=== PATIENT | female | born 1990 | race Caucasian/White ===

== ENCOUNTER 2016-12-28 21:01 | Emergency (ER) | payer OTHER ==
[2016-12-28 21:19] VITALS: BP 142/77; BMI 31.3
[2016-12-28] MEDS ORDERED: SOLU-Medrol 125 MG VIAL IVP ONE (21:38)
[2016-12-28] MEDS ORDERED: BENADRYL INJ 50 MG VIAL IVP STA (21:39)
[2016-12-28] MEDS ORDERED: PEPCID 20 MG IV PREMIX* 20 MG/50 ML BAG IV ONE ×2 (21:39→21:51)
--- NOTE | 2016-12-28 21:46 | DR.GENAD ---
HPI - PCP Primary Care Physician: Naa FINN - Complaint/Symptoms Chief Complaint Doctors Comments: Patient complains of rash for the past 1-2 weeks getting worst since last night. States onset when they went to the [place] earlier and last night they were in the [place] again and athe rash has gotten worst with itching and bullous lesion on her arms and back with red rash diffusely including the face. States she went to the walk in clinic last week and they told her it look like poison germán and they gave her some steriod pills, and pills for the itching and a cream for the rash and itching. States the medicne has not helped and she continues to break out with a rash. she denies SOB or chest pain. States she smokes 1/2 pack daily but denies alcohol or drug usage. States she has an IUD. Patient states she does not know if she was bitten by a tick while she [place]. Chief Complaint:: BREAKING OUT IN HIVES TIMES 1 WEEL CHEST NOW HURTING, BLISTER STARTING POPPING UP 30 MINS AGO Self Treatment fo Chief Complaint: PRESCRIBED STEROIDS ITCHING CREAM AND TABLETS - Nurses notes reviewed Nurses Notes Review: Yes - Source History Provided: Patient - Mode of Arrival Mode of Arrival: Ambulatory - Timing Onset of Chief Complaint: 12/20/16 Came on: Gradually - Duration Duration: Constant How lon Duration: Weeks - Location Location: diffuse rash or arms, legs, back - Severity Severity: Moderate - Modifying Factors Worsens:: nothing Improves:: nothing PMH - PMH Past Medical History: Yes Past Medical History: Anxiety, Depression Past Medical History Comment: OPIOID ADDICTION Past Surgical History: Yes Surgical History: , Cholecystectomy, [employer]AN Surgery Past Surgical History Comment: IUD - Family History History of Family Medical Conditions: Yes Family Medical History: Diabetes Mellitus, Cancer, [place], Heart Failure, Sudden Cardiac , Hypertension - Social History Does patient currently use any type of tobacco product: Yes Have you used tobacco products in the last 12 months: Yes Type of Tobacco Use: Cigarettes Does any household member use tobacco: No Do you use any recreational Drugs:: No Lives With: Significant Other Lives Where: Home - infectious screening In the last 2 months have you had wt loss of >10#?: NO Have you had fever, night sweats or hemotysis?: No Have you traveled outside the country in the last 6 months?: No Isolation: Standard ROS - Review of Systems Constitutional: No Symptoms Reported Eyes: No Symptoms Reported ENTM: No Symptoms Reported Respiratoy: No Symptoms Reported Cardiovascular: No Symptoms Reported Gastrointestinal/Abdominal: No Symptoms Reported Genitourinary: No Symptoms Reported Neurological: No Symptoms Reported Musculoskeletal: No Symptoms Reported Integumentary: No Symptoms Reported, Change in Color, Lesions, Rash, Itching Hematologic/Lymphatic: No Symptoms Reported Endocrine: No Symptoms Reported Psychiatric: No Symptoms Reported PE - Vital Signs Vitals: Pulse Rate 115 Respiratory Rate 20 Blood Pressure 142/77 O2 Sat by Pulse Oximetry 98 - General Limitations: No Limitations General Appearance: Alert - Head Head Exam: Normal Inspection, Atraumatic - Eyes Eye exam: Normal Appearance, PERRL, EOMI. negative: Scleral Icterus, Conjunctival Injection, Nystagmus, Miosis, Mydrasis, Periorbital Swelling, Periorbital Tenderness, Other - ENT ENT Exam: Normal Exam, Normal Oropharynx, Normal External Ear Exam, Mucous Membranes Moist, TM's Normal Bilaterally External Ear Exam: Normal External Inspection TM/Canal Exam: Bilateral Normal Nose Exam: Normal Nose Exam Mouth Exam: Normal Inspection Throat Exam: Normal Inspection, Tonsillar Erythema - Neck Neck Exam: Normal Inspection, Trachea Midline - Chest Chest Inspection: Normal Inspection, Symmetric Chest Wall Rise - Respiratory Respiratory Exam: Normal Lung Sounds Bilat Respiratory Exam: Bilateral Clear to Auscultation - Cardiovascular Cardiovascular Exam: Regular Rate, Normal Rhythm, Normal Heart Sounds - Abdominal Exam Abdominal Exam: Normal Inspection, Normal Bowel Sounds, Soft Abdominal Tenderness: negative: RUQ, RLQ, LUQ, LLQ, Epigastrium, Suprapubic, Diffuse, Mild, Moderate, Severe, Other - Extremities Extremities Exam: Normal Inspection, Full ROM, Tenderness (right elbow and fore arm with subcutaneous nodules tender 1 -2 cm with erythema), Normal Capillary Refill - Back Back Exam: Normal Inspection, Full ROM - Neurologic Neurological Exam: Alert, Oriented X3, CN II-XII Intact, Normal Gait, Reflexes Normal - Psychiatric Psychiatric Exam: Normal Affect, Normal Mood - Skin Skin Exam: Warm, Dry, Intact, Normal Color, Rash (diffuse rash 4 cm with pustular center; large area erythema, hives arms vback , leg and face) Course - Reevaluation 1st: Improved - Education/Counseling Education/Counseling: Patient Educated On: Treatment, Diagnosis, Needs for Follow Up (Patient states she want to go home and does not want to be observed in the hospital.) ROR - Labs Reviewed Laboratory Results Reviewed?: Yes (All labs and x-ray results reviewed and discussed with patient) Result Diagrams: 12/28/16 21:50 12/28/16 21:50 Laboratory: WBC 10.5 X10^3/uL (3.6-10.0) H 12/28/16 21:50 RBC 4.58 X10^6/uL (3.5-5.4) 12/28/16 21:50 Hgb 13.2 g/dL (12.0-16.0) 12/28/16 21:50 Hct 38.8 % (36.0-47.0) 12/28/16 21:50 MCV 84.8 fL (80.0-100.0) 12/28/16 21:50 MCH 28.8 pg (27.0-34.0) 12/28/16 21:50 MCHC 34.0 g/dL (33.0-35.0) 12/28/16 21:50 RDW 12.2 % (11.6-16.5) 12/28/16 21:50 Plt Count 314 X10^3/uL (150.0-450.0) 12/28/16 21:50 MPV 7.4 fL (7.4-11.0) 12/28/16 21:50 Neut % 65.2 % (42.0-75.0) 12/28/16 21:50 Lymph % 22.6 % (21.0-51.0) 12/28/16 21:50 [place] % 6.6 % (0.0-13.0) 12/28/16 21:50 Eos % 5.1 % (0.9-2.9) H 12/28/16 21:50 Baso % 0.5 % (0.2-1.0) 12/28/16 21:50 Neut # 6.9 x10^3/uL (2.2-4.8) H 12/28/16 21:50 Lymph # 2.4 X10^3/uL (1.3-2.9) 12/28/16 21:50 [place] # 0.7 x10^3/uL (0.3-0.8) 12/28/16 21:50 Eos # 0.5 x10^3/uL (0.0-0.2) H 12/28/16 21:50 Baso # 0.0 X10^3/uL (0.0-0.1) 12/28/16 21:50 Absolute Nucleated RBC 0.0 /100WBC 12/28/16 21:50 INR Target Range - 12/28/16 21:50 INR 0.87 (0.8-1.3) 12/28/16 21:50 PTT 27.7 SECONDS (22.9-36.5) 12/28/16 21:50 PTT Comment - 12/28/16 21:50 Sodium 142 mmol/L (136-145) 12/28/16 21:50 Corrected Sodium TNP 12/28/16 21:50 Potassium 4.3 mmol/L (3.5-5.1) 12/28/16 21:50 Chloride 105 mmol/L (98-107) 12/28/16 21:50 Carbon Dioxide 27.6 mmol/L (21-32) 12/28/16 21:50 BUN 17 mg/dL (7-18) 12/28/16 21:50 Creatinine 0.77 mg/dL (0.55-1.02) 12/28/16 21:50 Est GFR (MDRD) Af Amer > 60 (>60) 12/28/16 21:50 Est GFR (MDRD) Non-Af > 60 (>60) 12/28/16 21:50 Glucose 83 mg/dL (65-99) 12/28/16 21:50 Lactic Acid 0.7 mmol/L (0.4-2.0) 12/28/16 21:50 Calcium 9.0 mg/dL (8.5-10.1) 12/28/16 21:50 Corrected Calcium 9.6 mg/dL (8.5-10.1) 12/28/16 21:50 Magnesium 1.8 mg/dL (1.7-2.9) 12/28/16 21:50 Total Bilirubin 0.10 mg/dL (0.2-1.0) L 12/28/16 21:50 AST 22 Units/L (15-37) 12/28/16 21:50 ALT 31 Units/L (12-78) 12/28/16 21:50 Alkaline Phosphatase 104 Units/L (46-116) 12/28/16 21:50 Creatine Kinase 120 Units/L (26-192) 12/28/16 21:50 CK-MB (CK-2) 2.7 ng/mL (0-4.0) 12/28/16 21:50 CK/CKMB % Calc 2.3 % (<4) 12/28/16 21:50 Troponin I < 0.02 ng/mL (0-1.5) 12/28/16 21:50 C-Reactive Protein 5.90 mg/L (0-3.0) H 12/28/16 21:50 Total Protein 7.4 g/dL (6.4-8.2) 12/28/16 21:50 Albumin 3.3 g/dL (3.4-5.0) L 12/28/16 21:50 Globulin 4.1 g/dL (2.5-4.5) 12/28/16 21:50 Albumin/Globulin Ratio 0.8 Ratio (1.1-2.1) L 12/28/16 21:50 - XRAY XRAY Interpreted by: Radiologist (CXR: No acute cardiopulmonary disease) - Diagnosis Discharge Problem: Folliculitis, Poison germán dermatitis, Hives Allergic reaction Qualifiers: Encounter type: subsequent encounter Qualified Code(s): T78.40XD - Allergy, unspecified, subsequent encounter - Discharge Plan Disposition: 01 HOME, SELF-CARE Condition: Stable Prescriptions: Diphenhydramine HCl [BENADRYL CAP 50 MG *] 50 mg PO Q8H #30 cap Doxycycline Hyclate [Vibramycin] 100 mg PO BID #20 cap Loratadine 10 mg 24-Hr Tab [LORATADINE 10 MG *] 10 mg PO DAILY #30 tab Methylprednisolone [Medrol Dosepak] 4 mg PO DAILY PRN #1 pack PRN Reason: Pramoxine-Calamine [CALADRYL LOTION PINK *] 1 applic TOP QID PRN #180 ml PRN Reason: POISON GERMÁN/SKIN IRRITATION Ranitidine HCl [ZANTAC TAB 150 MG *] 150 mg PO BID #60 tab - Follow ups/Referrals Follow ups/Referrals: NFD,None [Primary Care Provider] - 3 days César Vilchis [STAFF PHYSICIAN] - 3 days - Instructions Instructions: Hives, Contact Dermatitis, [id number], Folliculitis, Pruritus, Poison Germán Dermatitis
[2016-12-28] MEDS ORDERED: NS 1000 ML 1,000 ML ONE ×2 (21:51→21:55)
[2016-12-28] MEDS ORDERED: BENADRYL INJ 50 MG VIAL ONE (21:51)
[2016-12-28] MEDS ORDERED: SOLU-Medrol 125 MG VIAL ONE (21:52)
[2016-12-28 21:58] LABS: BASOPHILS % (AUTO) 0.5 % (0.2-1.0); EOSINOPHILS # (AUTO) 0.5 x10^3/uL (0.0-0.2); EOSINOPHILS % (AUTO) 5.1 % (0.9-2.9); HEMATOCRIT 38.8 % (36.0-47.0); HEMOGLOBIN 13.2 g/dL (12.0-16.0); LYMPHOCYTES # (AUTO) 2.4 X10^3/uL (1.3-2.9); LYMPHOCYTES % (AUTO) 22.6 % (21.0-51.0); MEAN CORPUSCULAR HEMOGLOBIN 28.8 pg (27.0-34.0); MEAN CORPUSCULAR VOLUME 84.8 fL (80.0-100.0); MEAN PLATELET VOLUME 7.4 fL (7.4-11.0); MONOCYTES # (AUTO) 0.7 x10^3/uL (0.3-0.8); MONOCYTES % (AUTO) 6.6 % (0.0-13.0); NEUTROPHILS # (AUTO) 6.9 x10^3/uL (2.2-4.8); NEUTROPHILS % (AUTO) 65.2 % (42.0-75.0); PLATELET COUNT 314 X10^3/uL (150.0-450.0); RED BLOOD COUNT 4.58 X10^6/uL (3.5-5.4); RED CELL DISTRIBUTION WIDTH 12.2 % (11.6-16.5); WHITE BLOOD COUNT 10.5 X10^3/uL (3.6-10.0)
[2016-12-28] MEDS ORDERED: NS 1000 ML 1,000 ML IV SCH (22:00)
--- NOTE | 2016-12-28 22:09 | RAD ---
Chest, one view Indication: Breaking out in hives Comparison: None Findings: The cardiac silhouette is unremarkable. The lungs are clear, focal infiltrates or large ef fusion. The bony thorax is unremarkable. Impression: No acute cardiopulmonary disease. Reported By:
[2016-12-28 22:13] LABS: LACTIC ACID 0.7 mmol/L (0.4-2.0)
[2016-12-28 22:15] LABS: BLOOD UREA NITROGEN 17 mg/dL (7-18); CARBON DIOXIDE 27.6 mmol/L (21-32); CHLORIDE 105 mmol/L (98-107); CREATININE 0.77 mg/dL (0.55-1.02); GLUCOSE 83 mg/dL (65-99); SODIUM 142 mmol/L (136-145); TROPONIN I < 0.02 ng/mL (0-1.5); eGFR BLACK RACES > 60 (>60); eGFR NON BLACK RACES > 60 (>60)
[2016-12-28 22:18] LABS: ALANINE AMINOTRANSFERASE 31 Units/L (12-78); ALBUMIN 3.3 g/dL (3.4-5.0); ALKALINE PHOSPHATASE 104 Units/L (46-116); ASPARTATE AMINO TRANSFERASE 22 Units/L (15-37); CKMB % 2.3 % (<4); COR CA(FOR HYPOALB) 9.6 mg/dL (8.5-10.1); CREATINE KINASE 120 Units/L (26-192); CREATINE KINASE MB 2.7 ng/mL (0-4.0); MAGNESIUM 1.8 mg/dL (1.7-2.9); TOTAL PROTEIN 7.4 g/dL (6.4-8.2)
[2016-12-28] MEDS ORDERED: VIBRAMYCIN PO ONE ×2 (23:19→23:35)
== END 2016-12-28 23:49 | disposition home or self-care (01) ==
LOC: ER 21:01
DX: T78.40XD Allergy, unspecified, subsequent encounter (principal); L73.8 Other specified follicular disorders; L23.7 Allergic contact dermatitis due to plants, except food; L50.8 Other urticaria
CPT/HCPCS: 36415; 71010; 80053; 82550; 82553; 83605; 83735; 84484; 85025; 85610; 85730; 86140; 96365; 96367; 96374; 96375; 99283; A4222; S0028; J1200; J2930

== ENCOUNTER 2017-07-06 15:15 | Emergency (ER) | payer OTHER ==
[2017-07-06 15:23] VITALS: BMI 42.5
[2017-07-06] MEDS ORDERED: ASPIRIN ONE (15:35)
[2017-07-06 16:03] LABS: BASOPHILS % (AUTO) 0.9 % (0.2-1.0); EOSINOPHILS # (AUTO) 0.4 x10^3/uL (0.0-0.2); EOSINOPHILS % (AUTO) 6.8 % (0.9-2.9); HEMATOCRIT 37.7 % (36.0-47.0); HEMOGLOBIN 12.8 g/dL (12.0-16.0); LYMPHOCYTES # (AUTO) 1.5 X10^3/uL (1.3-2.9); LYMPHOCYTES % (AUTO) 27.5 % (21.0-51.0); MEAN CORPUSCULAR HEMOGLOBIN 29.2 pg (27.0-34.0); MEAN CORPUSCULAR HGB CONC 33.9 g/dL (33.0-35.0); MONOCYTES # (AUTO) 0.5 x10^3/uL (0.3-0.8); NEUTROPHILS # (AUTO) 3.1 x10^3/uL (2.2-4.8); NEUTROPHILS % (AUTO) 55.8 % (42.0-75.0); PLATELET COUNT 337 X10^3/uL (150.0-450.0); RED BLOOD COUNT 4.38 X10^6/uL (3.5-5.4); RED CELL DISTRIBUTION WIDTH 13.8 % (11.6-16.5); WHITE BLOOD COUNT 5.5 X10^3/uL (3.6-10.0)
--- NOTE | 2017-07-06 16:09 | DR.GENAD ---
HPI - PCP Primary Care Physician: NFD - Complaint/Symptoms Chief Complaint:: "For about 2 weeks now I have been having a lot of swelling in my legs and my feet. I have gained a lot of weight all of a sudden and then I drop it in a couple of days. My arms, legs, and ankles hurt me. Also today my chest has started hurting a bit. It's like a dull pain. 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 Past Surgical History Comment: IUD placement, Left tube removed - Family History History of Family Medical Conditions: Yes Family Medical History: Diabetes Mellitus, Cancer, [place], Heart Failure, Sudden Cardiac , Hypertension - Social History Does patient currently use any type of tobacco product: Yes Have you used tobacco products in the last 12 months: Yes Type of Tobacco Use: Cigarettes Does any household member use tobacco: Yes Alcohol Use: None Do you use any recreational Drugs:: No Lives With: Family Lives Where: Home - infectious screening In the last 2 months have you had wt loss of >10#?: NO Have you had fever, night sweats or hemotysis?: No Have you traveled outside the country in the last 6 months?: No Isolation: Standard ROS - Review of Systems Eyes: No Symptoms Reported ENTM: No Symptoms Reported Respiratoy: No Symptoms Reported Cardiovascular: No Symptoms Reported Gastrointestinal/Abdominal: No Symptoms Reported Genitourinary: No Symptoms Reported Neurological: No Symptoms Reported Musculoskeletal: No Symptoms Reported Integumentary: No Symptoms Reported Hematologic/Lymphatic: No Symptoms Reported Endocrine: No Symptoms Reported Psychiatric: No Symptoms Reported All Other Systems: Reviewed and Negative PE - Vital Signs Vitals: Temperature 97.8 F Pulse Rate 110 Respiratory Rate 18 Blood Pressure 120/80 O2 Sat by Pulse Oximetry 100 - General Limitations: No Limitations General Appearance: Alert, In No Apparent Distress - Head Head Exam: Normal Inspection, Atraumatic - Eyes Eye exam: Normal Appearance, PERRL, EOMI - ENT ENT Exam: Normal Exam External Ear Exam: Normal External Inspection TM/Canal Exam: Bilateral Normal Nose Exam: Normal Nose Exam Mouth Exam: Normal Inspection Throat Exam: Normal Inspection - Neck Neck Exam: Normal Inspection - Chest Chest Inspection: Normal Inspection - Respiratory Respiratory Exam: Normal Lung Sounds Bilat Respiratory Exam: Bilateral Clear to Auscultation - Cardiovascular Cardiovascular Exam: Regular Rate, Normal Rhythm - Abdominal Exam Abdominal Exam: Normal Inspection, Normal Bowel Sounds Abdominal Tenderness: negative: RUQ, RLQ, LUQ, LLQ, Epigastrium, Suprapubic, Diffuse, Mild, Moderate, Severe, Other - Extremities Extremities Exam: Tenderness, Edema (1+to 2+) - Back Back Exam: Normal Inspection, Full ROM - Neurologic Neurological Exam: Alert, Oriented X3, CN II-XII Intact - Psychiatric Psychiatric Exam: Normal Affect, Normal Mood Course - Reevaluation 1st: Unchanged ROR - Labs Reviewed Laboratory Results Reviewed?: Yes (Creatine Kinase 1198; CK-MB 20.7) Result Diagrams: 07/06/17 15:46 07/06/17 15:46 Laboratory: WBC 5.5 X10^3/uL (3.6-10.0) 07/06/17 15:46 RBC 4.38 X10^6/uL (3.5-5.4) 07/06/17 15:46 Hgb 12.8 g/dL (12.0-16.0) 07/06/17 15:46 Hct 37.7 % (36.0-47.0) 07/06/17 15:46 MCV 86.0 fL (80.0-100.0) 07/06/17 15:46 MCH 29.2 pg (27.0-34.0) 07/06/17 15:46 MCHC 33.9 g/dL (33.0-35.0) 07/06/17 15:46 RDW 13.8 % (11.6-16.5) 07/06/17 15:46 Plt Count 337 X10^3/uL (150.0-450.0) 07/06/17 15:46 MPV 7.0 fL (7.4-11.0) L 07/06/17 15:46 Neut % 55.8 % (42.0-75.0) 07/06/17 15:46 Lymph % 27.5 % (21.0-51.0) 07/06/17 15:46 [place] % 9.0 % (0.0-13.0) 07/06/17 15:46 Eos % 6.8 % (0.9-2.9) H 07/06/17 15:46 Baso % 0.9 % (0.2-1.0) 07/06/17 15:46 Neut # 3.1 x10^3/uL (2.2-4.8) 07/06/17 15:46 Lymph # 1.5 X10^3/uL (1.3-2.9) 07/06/17 15:46 [place] # 0.5 x10^3/uL (0.3-0.8) 07/06/17 15:46 Eos # 0.4 x10^3/uL (0.0-0.2) H 07/06/17 15:46 Baso # 0.0 X10^3/uL (0.0-0.1) 07/06/17 15:46 Absolute Nucleated RBC 0.0 /100WBC 07/06/17 15:46 INR Target Range - 07/06/17 15:46 INR 0.89 (0.8-1.3) 07/06/17 15:46 Sodium 138 mmol/L (136-145) 07/06/17 15:46 Corrected Sodium TNP 07/06/17 15:46 Potassium 3.5 mmol/L (3.5-5.1) 07/06/17 15:46 Chloride 102 mmol/L (98-107) 07/06/17 15:46 Carbon Dioxide 30.0 mmol/L (21-32) 07/06/17 15:46 BUN 11 mg/dL (7-18) 07/06/17 15:46 Creatinine 0.71 mg/dL (0.55-1.02) 07/06/17 15:46 Est GFR (MDRD) Af Amer > 60 (>60) 07/06/17 15:46 Est GFR (MDRD) Non-Af > 60 (>60) 07/06/17 15:46 Glucose 99 mg/dL (65-99) 07/06/17 15:46 Calcium 8.6 mg/dL (8.5-10.1) 07/06/17 15:46 Corrected Calcium TNP 07/06/17 15:46 Phosphorus 3.1 mg/dL (2.6-4.7) 07/06/17 15:46 Magnesium 1.8 mg/dL (1.7-2.9) 07/06/17 15:46 Total Bilirubin 0.30 mg/dL (0.2-1.0) 07/06/17 15:46 AST 79 Units/L (15-37) H 07/06/17 15:46 ALT 60 Units/L (12-78) 07/06/17 15:46 Alkaline Phosphatase 131 Units/L (46-116) H 07/06/17 15:46 Creatine Kinase 1198 Units/L (26-192) H 07/06/17 15:46 CK-MB (CK-2) 20.7 ng/mL (0-4.0) H* 07/06/17 15:46 CK/CKMB % Calc 1.7 % (<4) 07/06/17 15:46 Troponin I < 0.02 ng/mL (0-1.5) 07/06/17 15:46 Total Protein 7.5 g/dL (6.4-8.2) 07/06/17 15:46 Albumin 3.5 g/dL (3.4-5.0) 07/06/17 15:46 Globulin 4.0 g/dL (2.5-4.5) 07/06/17 15:46 Albumin/Globulin Ratio 0.9 Ratio (1.1-2.1) L 07/06/17 15:46 HCG, Qual Negative <10 mIU/mL 07/06/17 15:46 Specimen Type Random urine 07/06/17 17:14 Urine Color Iza (YELLOW) 07/06/17 17:14 Urine Appearance Hazy (CLEAR) 07/06/17 17:14 Urine pH 5.0 (5.0 - 8.0) 07/06/17 17:14 Ur Specific [place] 1.025 (1.000-1.030) 07/06/17 17:14 Urine Protein 2+ (NEGATIVE) 07/06/17 17:14 Urine Glucose (UA) Negative (NEGATIVE) 07/06/17 17:14 Urine Ketones 1+ (NEGATIVE) 07/06/17 17:14 Urine Occult Blood 1+ (NEGATIVE) 07/06/17 17:14 Urine Nitrite Negative (NEGATIVE) 07/06/17 17:14 Urine Bilirubin Negative (NEGATIVE) 07/06/17 17:14 Urine Urobilinogen 2+ (NORMAL) 07/06/17 17:14 Ur Leukocyte Esterase 1+ (NEGATIVE) 07/06/17 17:14 Urine RBC 0 - 3 /HPF (NEGATIVE) 07/06/17 17:14 Urine WBC 0 - 4 /HPF (NEGATIVE) 07/06/17 17:14 Ur Squamous Epith Cells Many /HPF (NEGATIVE) 07/06/17 17:14 Amorphous Sediment 2+ /HPF (NEGATIVE) 07/06/17 17:14 Urine Bacteria Trace /HPF (NEGATIVE) 07/06/17 17:14 Urine Mucus Moderate /HPF (NEGATIVE) 07/06/17 17:14 Ur Culture Indicated? No/not indicated 07/06/17 17:14 - XRAY XRAY Interpreted by: Radiologist (Chest: comparison reference: 12/28/16; No change, no acute disease) - Diagnosis Discharge Problem: Myopathy - Discharge Plan Condition: Stable - Follow ups/Referrals Follow ups/Referrals: NFD,None [Primary Care Provider] - 3 days - Instructions
[2017-07-06 16:24] LABS: BLOOD UREA NITROGEN 11 mg/dL (7-18); CALCIUM 8.6 mg/dL (8.5-10.1); CHLORIDE 102 mmol/L (98-107); CREATININE 0.71 mg/dL (0.55-1.02); SODIUM 138 mmol/L (136-145); TROPONIN I < 0.02 ng/mL (0-1.5); eGFR BLACK RACES > 60 (>60); eGFR NON BLACK RACES > 60 (>60)
[2017-07-06 16:26] LABS: SERUM PREGNANCY TEST, QUAL NEGATIVE <10 mIU/mL
[2017-07-06 16:46] LABS: ALANINE AMINOTRANSFERASE 60 Units/L (12-78); ALBUMIN 3.5 g/dL (3.4-5.0); ALKALINE PHOSPHATASE 131 Units/L (46-116); ASPARTATE AMINO TRANSFERASE 79 Units/L (15-37); MAGNESIUM 1.8 mg/dL (1.7-2.9); PHOSPHORUS 3.1 mg/dL (2.6-4.7); TOTAL PROTEIN 7.5 g/dL (6.4-8.2)
--- NOTE | 2017-07-06 16:51 | RAD ---
Examination: Chest, PA and lateral views History: Leg swelling chest pain Comparison reference: 12/28/2016 Findings: Continued normal heart size with clear lungs and pleural spaces. There is no evidence for p neumonia, CHF or pleural effusion. Impression: No change; no acute disease. Reported By:
[2017-07-06 17:03] LABS: CKMB % 1.7 % (<4); CREATINE KINASE 1198 Units/L (26-192); CREATINE KINASE MB 20.7 ng/mL (0-4.0)
[2017-07-06 18:00] LABS: BILIRUBIN,URINE NEGATIVE (NEGATIVE); BLOOD/HEMOGLOBIN,URINE 1+ (NEGATIVE); GLUCOSE, URINE NEGATIVE (NEGATIVE); KETONES,URINE 1+ (NEGATIVE); LEUKOCYTE ESTERASE ,URINE 1+ (NEGATIVE); NITRITES,URINE NEGATIVE (NEGATIVE); PROTEIN,URINE 2+ (NEGATIVE); UROBILINOGEN,URINE 2+ (NORMAL)
[2017-07-06 18:20] LABS: APPEARANCE,URINE HAZY (CLEAR); COLOR,URINE AMBER (YELLOW)
[2017-07-06 18:21] LABS: BACTERIA,URINE TRACE /HPF (NEGATIVE); RBC,URINE 0 - 3 /HPF (NEGATIVE); SQUAMOUS EPITHELIAL CELL,UR MANY /HPF (NEGATIVE)
[2017-07-06 18:22] LABS: AMORPHOUS SEDIMENT,UR 2+ /HPF (NEGATIVE)
[2017-07-06 18:23] LABS: MUCUS,URINE MODERATE /HPF (NEGATIVE)
[2017-07-06 19:12] VITALS: BP 133/74
[2017-07-07] MEDS ORDERED: ASPIRIN PO ONE (15:48)
== END 2017-07-06 19:11 | disposition home or self-care (01) ==
LOC: ER 15:15
DX: G72.9 Myopathy, unspecified (principal)
CPT/HCPCS: 36415; 71020; 80053; 81001; 82550; 82553; 83735; 84100; 84484; 84703; 85025; 85610; 93005; 93010; 96365; 99283; A4222

== ENCOUNTER 2018-01-13 09:37 | Emergency (ER) | payer OTHER ==
[2018-01-13 09:45] VITALS: BMI 36.0
[2018-01-13] MEDS ORDERED: TORADOL 30 MG VIAL IVP ONE (10:49)
[2018-01-13] MEDS ORDERED: ZOSYN VIAL 3.375 GM 3.375 GM in NS 100 ML IV + SPIKE MINIBAG* 100 ML IV ONE (10:49)
[2018-01-13] MEDS ORDERED: NS 1000 ML 1,000 ML IV ONE (10:49)
[2018-01-13] MEDS ORDERED: NS 100 ML IV + SPIKE MINIBAG* 100 ML IV ONE (10:54)
[2018-01-13] MEDS ORDERED: ZOSYN VIAL 3.375 GM IV ONE (10:54)
[2018-01-13] MEDS ORDERED: NS 1000 ML 1,000 ML ONE (10:54)
[2018-01-13] MEDS ORDERED: TORADOL 30 MG VIAL ONE (10:54)
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
[2018-01-13 11:27] LABS: BASOPHILS # (AUTO) 0.1 X10^3/uL (0.0-0.1); BASOPHILS % (AUTO) 0.7 % (0.2-1.0); EOSINOPHILS # (AUTO) 0.2 x10^3/uL (0.0-0.2); EOSINOPHILS % (AUTO) 2.3 % (0.9-2.9); HEMATOCRIT 38.6 % (36.0-47.0); HEMOGLOBIN 13.2 g/dL (12.0-16.0); LYMPHOCYTES # (AUTO) 1.7 X10^3/uL (1.3-2.9); LYMPHOCYTES % (AUTO) 15.6 % (21.0-51.0); MEAN CORPUSCULAR HEMOGLOBIN 28.8 pg (27.0-34.0); MEAN CORPUSCULAR HGB CONC 34.2 g/dL (33.0-35.0); MEAN CORPUSCULAR VOLUME 84.3 fL (80.0-100.0); MEAN PLATELET VOLUME 7.6 fL (7.4-11.0); MONOCYTES # (AUTO) 0.5 x10^3/uL (0.3-0.8); NEUTROPHILS # (AUTO) 8.3 x10^3/uL (2.2-4.8); NEUTROPHILS % (AUTO) 76.4 % (42.0-75.0); PLATELET COUNT 318 X10^3/uL (150.0-450.0); RED BLOOD COUNT 4.58 X10^6/uL (3.5-5.4); RED CELL DISTRIBUTION WIDTH 13.4 % (11.6-16.5); WHITE BLOOD COUNT 10.9 X10^3/uL (3.6-10.0)
[2018-01-13 11:37] LABS: ALANINE AMINOTRANSFERASE 23 Units/L (12-78); ALBUMIN 3.6 g/dL (3.4-5.0); ALKALINE PHOSPHATASE 79 Units/L (46-116); ASPARTATE AMINO TRANSFERASE 16 Units/L (15-37); BLOOD UREA NITROGEN 11 mg/dL (7-18); CALCIUM 8.2 mg/dL (8.5-10.1); CARBON DIOXIDE 26.1 mmol/L (21-32); CHLORIDE 102 mmol/L (98-107); CREATININE 0.86 mg/dL (0.55-1.02); SODIUM 138 mmol/L (136-145); TOTAL PROTEIN 7.5 g/dL (6.4-8.2); eGFR BLACK RACES > 60 (>60); eGFR NON BLACK RACES > 60 (>60)
[2018-01-13 11:40] LABS: LACTIC ACID 0.8 mmol/L (0.4-2.0)
[2018-01-13] MEDS ORDERED: MORPHINE SULFATE INJ 4 MG IVP ONE (11:45)
[2018-01-13] MEDS ORDERED: ZOFRAN INJ 4 MG VIAL ONE (11:45)
[2018-01-13] MEDS ORDERED: ZOFRAN INJ 4 MG VIAL IVP ONE (11:45)
[2018-01-13] MEDS ORDERED: MORPHINE SULFATE INJ 4 MG ONE (11:46)
[2018-01-13] MEDS ORDERED: PHARMACY CONSULT - VANCOMYCIN XX SCH (13:00)
[2018-01-13] MEDS: ZOSYN VIAL 3.375 GM 3.375 GM in NS 100 ML IV + SPIKE MINIBAG* 100 ML IV SCH ×2 (13:28→21:27)
[2018-01-13] MEDS: VANCOMYCIN HCL 1 GM VIAL 1 GM in D5W 250 ML IV 250 ML IV SCH ×2 (13:39→21:03)
[2018-01-13] MEDS: NS 1000 ML 1,000 ML IV SCH ×2 (13:40→21:02)
[2018-01-13] MEDS: PHENERGAN TAB 25 MG PO PRN (16:13)
[2018-01-13] MEDS: MOTRIN TAB 600 MG PO PRN (16:13)
[2018-01-13] MEDS: NICOTINE PATCH TD SCH (21:21)
[2018-01-13] MEDS: AMBIEN PO PRN (23:39)
[2018-01-14] MEDS: MOTRIN TAB 600 MG PO PRN ×3 (04:08→22:00)
[2018-01-14] MEDS: NS 1000 ML 1,000 ML IV SCH ×4 (04:09→21:57)
[2018-01-14] MEDS: ZOSYN VIAL 3.375 GM 3.375 GM in NS 100 ML IV + SPIKE MINIBAG* 100 ML IV SCH ×3 (05:16→22:03)
[2018-01-14 06:57] LABS: BASOPHILS % (AUTO) 0.4 % (0.2-1.0); EOSINOPHILS # (AUTO) 0.5 x10^3/uL (0.0-0.2); EOSINOPHILS % (AUTO) 5.6 % (0.9-2.9); HEMATOCRIT 37.5 % (36.0-47.0); HEMOGLOBIN 12.7 g/dL (12.0-16.0); LYMPHOCYTES # (AUTO) 1.9 X10^3/uL (1.3-2.9); LYMPHOCYTES % (AUTO) 23.5 % (21.0-51.0); MEAN CORPUSCULAR HEMOGLOBIN 28.8 pg (27.0-34.0); MEAN CORPUSCULAR VOLUME 84.9 fL (80.0-100.0); MEAN PLATELET VOLUME 7.5 fL (7.4-11.0); MONOCYTES # (AUTO) 0.4 x10^3/uL (0.3-0.8); MONOCYTES % (AUTO) 4.7 % (0.0-13.0); NEUTROPHILS # (AUTO) 5.4 x10^3/uL (2.2-4.8); NEUTROPHILS % (AUTO) 65.8 % (42.0-75.0); PLATELET COUNT 272 X10^3/uL (150.0-450.0); RED BLOOD COUNT 4.42 X10^6/uL (3.5-5.4); RED CELL DISTRIBUTION WIDTH 13.8 % (11.6-16.5); WHITE BLOOD COUNT 8.1 X10^3/uL (3.6-10.0)
[2018-01-14 07:21] LABS: ALANINE AMINOTRANSFERASE 21 Units/L (12-78); ALBUMIN 3.2 g/dL (3.4-5.0); ALKALINE PHOSPHATASE 79 Units/L (46-116); ASPARTATE AMINO TRANSFERASE 16 Units/L (15-37); BLOOD UREA NITROGEN 9 mg/dL (7-18); CALCIUM 7.7 mg/dL (8.5-10.1); CARBON DIOXIDE 25.1 mmol/L (21-32); CHLORIDE 105 mmol/L (98-107); COR CA(FOR HYPOALB) 8.3 mg/dL (8.5-10.1); CREATININE 0.95 mg/dL (0.55-1.02); SODIUM 139 mmol/L (136-145); TOTAL PROTEIN 6.9 g/dL (6.4-8.2); eGFR BLACK RACES > 60 (>60); eGFR NON BLACK RACES > 60 (>60)
[2018-01-14] MEDS: NICOTINE PATCH TD SCH (08:42)
[2018-01-14] MEDS: CHECK PATCH XX SCH ×2 (08:42→21:56)
[2018-01-14] MEDS: VANCOMYCIN HCL 1 GM VIAL 1 GM in D5W 250 ML IV 250 ML IV SCH (08:42)
[2018-01-14] MEDS: PHENERGAN TAB 25 MG PO PRN ×2 (12:57→21:59)
--- NOTE | 2018-01-14 13:02 | DR.H&P ---
H&P - History & Physical for Day of: H&P Date: 01/13/18 - Chief Complaint Chief Complaint: RIGHT UPPER ARM REDNESS, SWELLING AND PAIN - Allergies Allergies/Adverse Reactions: Allergies Allergy/AdvReac Type Severity Reaction Status Date / Time No Known Drug Allergies Allergy Verified 07/06/17 15:16 - History of Present Illness History of Present Illness: 28 WF ER ADMISSION WITH RUE CELLULITIS. PT STATES [facility] [place] AND GIVEN BACTRIM FOR CELLULITIS WITHOUT IMPROVEMENT. PT DENIES ANY KNOWN INJURY, THOUGHT IT COULD BE A SPIDER BITE. PT DENIES ANY PMH OTHER THAN PIHTN. PT ADMITTED FOR IV ATBX THERAPY, CULTURES COLLECTED ON ADMISSION - Past Medical History Past Medical History: Anxiety, Depression - Past Surgical History Surgical History: , Cholecystectomy, [employer] Surgery - Family History Family Medical History: Diabetes Mellitus, Cancer, MS, Heart Failure, Sudden Cardiac , Hypertension - Social History Does patient currently use any type of tobacco product: Yes Have you used tobacco products in the last 12 months: Yes Type of Tobacco Use: Cigarettes Does any household member use tobacco: Yes Alcohol Use: None Drug Use: None - Medications Home Medications: Citalopram Hydrobromide [Celexa 10 mg] 1 tab PO DAILY 01/13/18 [History Confirmed 01/13/18] Sulfamethoxazole-Trimethoprim [BACTRIM DS TAB 800/160 MG *] 1 tab PO BID [History Confirmed 01/13/18] - Review of Systems Constitutional: Chills Eyes: No Symptoms Reported ENT: No Symptoms Reported Respiratory: No Symptoms Reported Cardiovascular: No Symptoms Reported Gastrointestinal: No Symptoms Reported Genitourinary: No Symptoms Reported Musculoskeletal: Arm Pain Skin: Rash Neurological: No Symptoms Reported - Physical Exam Vital Signs: Temperature 97.5 F Pulse Rate [Right Brachial] 65 Pulse Rate 112 Respiratory Rate 18 Blood Pressure [Right Arm] 124/77 Blood Pressure 111/69 O2 Sat by Pulse Oximetry 100 Oriented: Normal Eyes: Normal Nose: Normal Throat: Normal Respiratory: Clear Throughout Cardiovascular: Normal : Normal Auscultation: Bowel Sounds: Normal Palpation: Normal Skin: Rash, Red (RIGHT UPPER EXTREMITY), Tender, Hot Musculoskeletal: Right, Arm, Elbow, Forearm, Wrist, Hand Psychiatric: Normal Mood Description: Calm Speech Pattern: Clear, Appropriate - Assessment/Plan (1) Cellulitis of right upper arm Status: Acute Plan: ADMIT, IV ATBX. BLOOD CULTURES COLLECTED ON ADMISSION. PAIN CONTROL (2) Right arm pain Status: Acute
--- NOTE | 2018-01-14 13:04 | PCM.PROG ---
Progress Note - Progress Note for Day of Date: 01/14/18 - Subjective Subjective: 28 WF ER ADMIT ON 01/13 WITH RUE CELLULITIS, PT HAS BEEN ON IV ZOSYN AND VANCOMYCIN. PT HAS SLIGHT IMPROVEMENT IN AREA OF REDNESS, CONTINUES WITH EDEMA AND PAIN - Past Medical Family Social History Allergies: Allergies No Known Drug Allergies Allergy (Verified 07/06/17 15:16) - Vital Signs and I&O's Vital Signs: Temperature 97.5 F Pulse Rate [Right Brachial] 65 Pulse Rate 112 Respiratory Rate 18 Blood Pressure [Right Arm] 124/77 Blood Pressure 111/69 O2 Sat by Pulse Oximetry 100 Intake and Output: Intake & Output 01/12/18 01/13/18 01/14/18 01/15/18 11:59 11:59 11:59 11:59 Intake Total 3960 Output Total 0 Balance 3960 - Physical Exam Oriented: Normal Eyes: Normal Nose: Normal Throat: Normal Cardiovascular: Normal : Normal Auscultation: Bowel Sounds: Normal Skin: Rash, Red (RIGHT UPPER EXTREMITY), Tender, Hot Musculoskeletal: Right, Arm, Elbow, Forearm, Wrist, Hand Psychiatric: Normal Mood Description: Calm Speech Pattern: Clear, Appropriate - Laboratory and Diagnostics Result Diagrams: 01/14/18 06:36 01/14/18 06:36 Labs: Laboratory WBC 8.1 X10^3/uL (3.6-10.0) 01/14/18 06:36 RBC 4.42 X10^6/uL (3.5-5.4) 01/14/18 06:36 Hgb 12.7 g/dL (12.0-16.0) 01/14/18 06:36 Hct 37.5 % (36.0-47.0) 01/14/18 06:36 MCV 84.9 fL (80.0-100.0) 01/14/18 06:36 MCH 28.8 pg (27.0-34.0) 01/14/18 06:36 MCHC 34.0 g/dL (33.0-35.0) 01/14/18 06:36 RDW 13.8 % (11.6-16.5) 01/14/18 06:36 Plt Count 272 X10^3/uL (150.0-450.0) 01/14/18 06:36 MPV 7.5 fL (7.4-11.0) 01/14/18 06:36 Neut % (Auto) 65.8 % (42.0-75.0) 01/14/18 06:36 Lymph % (Auto) 23.5 % (21.0-51.0) 01/14/18 06:36 [place] % (Auto) 4.7 % (0.0-13.0) 01/14/18 06:36 Eos % (Auto) 5.6 % (0.9-2.9) H 01/14/18 06:36 Baso % (Auto) 0.4 % (0.2-1.0) 01/14/18 06:36 Neut # (Auto) 5.4 x10^3/uL (2.2-4.8) H 01/14/18 06:36 Lymph # (Auto) 1.9 X10^3/uL (1.3-2.9) 01/14/18 06:36 [place] # (Auto) 0.4 x10^3/uL (0.3-0.8) 01/14/18 06:36 Eos # (Auto) 0.5 x10^3/uL (0.0-0.2) H 01/14/18 06:36 Baso # (Auto) 0.0 X10^3/uL (0.0-0.1) 01/14/18 06:36 Absolute Nucleated RBC 0.1 /100WBC 01/14/18 06:36 Sodium 139 mmol/L (136-145) 01/14/18 06:36 Corrected Sodium TNP 01/14/18 06:36 Potassium 3.5 mmol/L (3.5-5.1) 01/14/18 06:36 Chloride 105 mmol/L (98-107) 01/14/18 06:36 Carbon Dioxide 25.1 mmol/L (21-32) 01/14/18 06:36 BUN 9 mg/dL (7-18) 01/14/18 06:36 Creatinine 0.95 mg/dL (0.55-1.02) 01/14/18 06:36 Est GFR (MDRD) Af Amer > 60 (>60) 01/14/18 06:36 Est GFR (MDRD) Non-Af > 60 (>60) 01/14/18 06:36 Glucose 78 mg/dL (65-99) 01/14/18 06:36 Lactic Acid 0.8 mmol/L (0.4-2.0) 01/13/18 10:54 Calcium 7.7 mg/dL (8.5-10.1) L 01/14/18 06:36 Corrected Calcium 8.3 mg/dL (8.5-10.1) L 01/14/18 06:36 Total Bilirubin 0.40 mg/dL (0.2-1.0) 01/14/18 06:36 AST 16 Units/L (15-37) 01/14/18 06:36 ALT 21 Units/L (12-78) 01/14/18 06:36 Alkaline Phosphatase 79 Units/L (46-116) 01/14/18 06:36 C-Reactive Protein 18.20 mg/L (0-3.0) H 01/13/18 10:54 Total Protein 6.9 g/dL (6.4-8.2) 01/14/18 06:36 Albumin 3.2 g/dL (3.4-5.0) L 01/14/18 06:36 Globulin 3.7 g/dL (2.5-4.5) 01/14/18 06:36 Albumin/Globulin Ratio 0.9 Ratio (1.1-2.1) L 01/14/18 06:36 - Plan (1) Cellulitis of right upper arm Status: Acute Plan: IV VANCOMYCIN AND ZOSYN. BLOOD CULTURES COLLECTED ON ADMISSION. PAIN CONTROL (2) Right arm pain Status: Acute
--- NOTE | 2018-01-14 15:29 | RAD ---
History: Right elbow cellulitis Study: Right elbow three views Findings: Three views of the right elbow demonstrate normal alignment and joint spacing. No fracture, bony destructive process or joint effusion is identified. There is reticulation of the subcutaneous fat of the distal posterior upper arm extending to just below the elbow medially. Impression: Possible cellulitis with no underlying bony abnormality. Reported By:
[2018-01-14 20:15] LABS: CREATININE 0.92 mg/dL (0.55-1.02); VANCOMYCIN,TROUGH 5.6 ug/mL (15-20)
[2018-01-14] MEDS ORDERED: PHARMACY CONSULT - VANCOMYCIN XX SCH (21:00)
[2018-01-14] MEDS ORDERED: VANCOMYCIN HCL 1 GM VIAL ONE (21:44)
[2018-01-14] MEDS ORDERED: NS 250 ML IV 250 ML IV ONE ×2 (21:44→22:05)
[2018-01-14] MEDS ORDERED: VANCOMYCIN HCL 500 MG VIAL ONE (21:44)
[2018-01-14] MEDS: VANCOMYCIN HCL 500 MG VIAL 500 MG, VANCOMYCIN HCL 1 GM VIAL 1 GM in NS 250 ML IV 250 ML IV SCH (21:57)
[2018-01-14] MEDS: AMBIEN PO PRN (22:00)
[2018-01-15] MEDS: ZOSYN VIAL 3.375 GM 3.375 GM in NS 100 ML IV + SPIKE MINIBAG* 100 ML IV SCH ×4 (02:00→22:10)
[2018-01-15] MEDS: NS 1000 ML 1,000 ML IV SCH ×3 (05:56→21:19)
[2018-01-15 06:26] LABS: BASOPHILS % (AUTO) 0.5 % (0.2-1.0); EOSINOPHILS # (AUTO) 0.5 x10^3/uL (0.0-0.2); EOSINOPHILS % (AUTO) 6.7 % (0.9-2.9); HEMATOCRIT 36.5 % (36.0-47.0); HEMOGLOBIN 12.2 g/dL (12.0-16.0); LYMPHOCYTES % (AUTO) 27.9 % (21.0-51.0); MEAN CORPUSCULAR HEMOGLOBIN 28.6 pg (27.0-34.0); MEAN CORPUSCULAR HGB CONC 33.5 g/dL (33.0-35.0); MEAN CORPUSCULAR VOLUME 85.4 fL (80.0-100.0); MEAN PLATELET VOLUME 7.8 fL (7.4-11.0); MONOCYTES # (AUTO) 0.5 x10^3/uL (0.3-0.8); MONOCYTES % (AUTO) 6.6 % (0.0-13.0); NEUTROPHILS # (AUTO) 4.2 x10^3/uL (2.2-4.8); NEUTROPHILS % (AUTO) 58.3 % (42.0-75.0); PLATELET COUNT 262 X10^3/uL (150.0-450.0); RED BLOOD COUNT 4.27 X10^6/uL (3.5-5.4); RED CELL DISTRIBUTION WIDTH 13.3 % (11.6-16.5); WHITE BLOOD COUNT 7.3 X10^3/uL (3.6-10.0)
[2018-01-15 06:36] LABS: ALANINE AMINOTRANSFERASE 19 Units/L (12-78); ALBUMIN 2.9 g/dL (3.4-5.0); ALKALINE PHOSPHATASE 87 Units/L (46-116); ASPARTATE AMINO TRANSFERASE 15 Units/L (15-37); BLOOD UREA NITROGEN 8 mg/dL (7-18); CALCIUM 7.6 mg/dL (8.5-10.1); CARBON DIOXIDE 24.9 mmol/L (21-32); CHLORIDE 108 mmol/L (98-107); COR CA(FOR HYPOALB) 8.5 mg/dL (8.5-10.1); CREATININE 0.75 mg/dL (0.55-1.02); SODIUM 140 mmol/L (136-145); TOTAL PROTEIN 6.4 g/dL (6.4-8.2); eGFR BLACK RACES > 60 (>60); eGFR NON BLACK RACES > 60 (>60)
[2018-01-15] MEDS: MILK OF MAGNESIA PO SCH ×2 (07:45→20:37)
[2018-01-15] MEDS: COLACE CAP 100 MG PO SCH ×2 (07:45→20:36)
[2018-01-15] MEDS ORDERED: VANCOMYCIN HCL 1 GM VIAL ONE (07:56)
[2018-01-15] MEDS ORDERED: NS 250 ML IV 250 ML IV ONE (07:56)
[2018-01-15] MEDS ORDERED: VANCOMYCIN HCL 500 MG VIAL ONE (07:57)
[2018-01-15] MEDS: NICOTINE PATCH TD SCH (08:13)
[2018-01-15] MEDS: NORCO 5/325 MG TAB PO PRN ×2 (08:13→19:37)
[2018-01-15] MEDS: CHECK PATCH XX SCH ×2 (08:15→20:35)
[2018-01-15] MEDS: VANCOMYCIN HCL 500 MG VIAL 500 MG, VANCOMYCIN HCL 1 GM VIAL 1 GM in NS 250 ML IV 250 ML IV SCH (08:15)
[2018-01-15] MEDS: VANCOMYCIN HCL 1 GM VIAL 1 GM in D5W 250 ML IV 250 ML IV SCH ×3 (09:41→21:19)
[2018-01-15] MEDS: AMBIEN PO PRN (22:11)
[2018-01-16] MEDS: NS 1000 ML 1,000 ML IV SCH ×4 (02:26→21:24)
[2018-01-16 05:16] LABS: BASOPHILS % (AUTO) 0.4 % (0.2-1.0); EOSINOPHILS # (AUTO) 0.4 x10^3/uL (0.0-0.2); EOSINOPHILS % (AUTO) 5.7 % (0.9-2.9); HEMATOCRIT 35.5 % (36.0-47.0); LYMPHOCYTES # (AUTO) 2.4 X10^3/uL (1.3-2.9); LYMPHOCYTES % (AUTO) 34.3 % (21.0-51.0); MEAN CORPUSCULAR HEMOGLOBIN 28.7 pg (27.0-34.0); MEAN CORPUSCULAR HGB CONC 33.8 g/dL (33.0-35.0); MEAN PLATELET VOLUME 7.6 fL (7.4-11.0); MONOCYTES # (AUTO) 0.4 x10^3/uL (0.3-0.8); MONOCYTES % (AUTO) 5.6 % (0.0-13.0); NEUTROPHILS # (AUTO) 3.7 x10^3/uL (2.2-4.8); PLATELET COUNT 282 X10^3/uL (150.0-450.0); RED BLOOD COUNT 4.18 X10^6/uL (3.5-5.4); RED CELL DISTRIBUTION WIDTH 13.2 % (11.6-16.5); WHITE BLOOD COUNT 6.9 X10^3/uL (3.6-10.0)
[2018-01-16 05:20] LABS: ALANINE AMINOTRANSFERASE 19 Units/L (12-78); ALBUMIN 2.8 g/dL (3.4-5.0); ALKALINE PHOSPHATASE 69 Units/L (46-116); ASPARTATE AMINO TRANSFERASE 13 Units/L (15-37); BLOOD UREA NITROGEN 8 mg/dL (7-18); CALCIUM 7.4 mg/dL (8.5-10.1); CHLORIDE 106 mmol/L (98-107); COR CA(FOR HYPOALB) 8.4 mg/dL (8.5-10.1); CREATININE 0.76 mg/dL (0.55-1.02); CREATININE 0.83 mg/dL (0.55-1.02); SODIUM 140 mmol/L (136-145); TOTAL PROTEIN 6.3 g/dL (6.4-8.2); VANCOMYCIN,TROUGH 12.6 ug/mL (15-20); eGFR BLACK RACES > 60 (>60); eGFR NON BLACK RACES > 60 (>60)
[2018-01-16] MEDS ORDERED: PHARMACY COMMENT IV NR (05:30)
[2018-01-16] MEDS: VANCOMYCIN HCL 1 GM VIAL 1 GM in D5W 250 ML IV 250 ML IV SCH ×3 (05:49→21:26)
[2018-01-16] MEDS: ZOSYN VIAL 3.375 GM 3.375 GM in NS 100 ML IV + SPIKE MINIBAG* 100 ML IV SCH ×3 (06:29→21:26)
[2018-01-16] MEDS ORDERED: PHARMACY COMMENT IV SCH (08:45)
[2018-01-16] MEDS: CHECK PATCH XX SCH ×2 (09:11→21:23)
[2018-01-16] MEDS: NICOTINE PATCH TD SCH (09:18)
[2018-01-16] MEDS: MOTRIN TAB 600 MG PO PRN (12:15)
[2018-01-16 16:43] VITALS: BP 117/64
[2018-01-16] MEDS: COLACE CAP 100 MG PO SCH (21:23)
[2018-01-16] MEDS: MILK OF MAGNESIA PO SCH (21:24)
== END 2018-01-16 22:50 | disposition home or self-care (01) ==
LOC: ER 09:52 → MED/SURG 13:00 → OBS 14:47 → MED/SURG 14:47
PROVIDERS: ADMIT Internal Medicine; ATTEND Internal Medicine
DX: L03.113 Cellulitis of right upper limb (principal); L03.313 Cellulitis of chest wall; W57.XXXA Bitten or stung by nonvenomous insect and other nonvenomous arthropods, initial encounter; M79.621 Pain in right upper arm; R79.82 Elevated C-reactive protein (CRP)
CPT/HCPCS: 36415; 73070; 80053; 80202; 82565; 83605; 85025; 86140; 87040; 96365; 96374; 96375; 99283; 99284; A4222; Q0169; G0378; J1885; J2270; J2405; J2543; J3370